=== PATIENT | male | born 1995 | race African-American/Black ===

== ENCOUNTER 2024-02-08 03:26 | Emergency (ER) | payer SELFPAY ==
[~2024-02-08] VITALS: Ht 190.5 cm; Wt 63.5 kg
[2024-02-08 04:06] VITALS: BP 173/88; TEMP 98.8; O2SAT 98
[2024-02-08 04:26] LABS: BASOPHILS % (AUTO) 0.4 % (0.0-2.0); EOSINOPHILS # (AUTO) 0.1 K/uL (0.0-0.7); EOSINOPHILS % (AUTO) 1.4 % (0.0-6.0); HEMATOCRIT 37 % (39-51); HEMOGLOBIN 12.2 g/dL (13.5-17.5); LYMPHOCYTES # (AUTO) 2.4 K/uL (0.8-4.8); LYMPHOCYTES % (AUTO) 29.9 % (20.0-44.0); MEAN CORPUSCULAR HEMOGLOBIN 30 PG (26.0-33.0); MEAN CORPUSCULAR HGB CONC 33 g/dl (31.0-36.0); MEAN CORPUSCULAR VOLUME 90 fL (80-96); MONOCYTES # (AUTO) 0.7 K/uL (0.1-1.30); MONOCYTES % (AUTO) 8.3 % (2.0-12.0); NEUTROPHILS # (AUTO) 4.9 K/uL (1.8-8.9); PLATELET COUNT (AUTO) 210 K/uL (150-450); RED BLOOD CELL COUNT(AUTO) 4.13 MIL/uL (4.5-6.0); WHITE BLOOD COUNT (AUTO) 8.2 K/uL (4.3-11.0)
[2024-02-08 04:30] LABS: APPEARANCE,URINE CLOUDY (CLEAR); BILIRUBIN,URINE NEGATIVE (NEGATIVE); BLOOD, URINE 3+ Ery/uL (NEGATIVE); COLOR,URINE DARK YELLOW (YELLOW); KETONES,URINE TRACE mg/dL (NEGATIVE); LEUKOCYTE ESTERASE ,URINE NEGATIVE (NEGATIVE); NITRITE, URINE NEGATIVE (NEGATIVE); PROTEIN,URINE TRACE mg/dl (NEGATIVE); UGLUCOSE NEGATIVE (NEGATIVE)
[2024-02-08 04:31] LABS: ADD URINE CULTURE YES; BACTERIA,URINE Rare /HPF (None Seen); RBC,URINE 21-50 /HPF (0-2); SQUAMOUS EPITHELIAL CELL,UR Few /HPF (None Seen)
[2024-02-08 04:46] LABS: ALBUMIN 3.6 g/dL (3.4-5.0); BILIRUBIN,TOTAL 0.7 mg/dL (0.2-1.0); POTASSIUM 3.7 mmol/L (3.5-5.1); TOTAL PROTEIN, SERUM 7.5 g/dL (6.4-8.2)
[2024-02-08] MEDS ORDERED: TAMS-12 PO (05:45)
[2024-02-08] MEDS ORDERED: KETO10TA2 PO (05:45)
[2024-02-08] MEDS: MORPHINE SULFATE INJ 2 MG/ML DISP.SYRIN IV ONE (06:02)
[2024-02-08] MEDS: ONDANSETRON HCL/PF - ER 4 MG/2 ML VIAL IV ONE (06:02)
[2024-02-08 06:23] LABS: AMPHETAMINE, URINE NEGATIVE (NEGATIVE); BARBITURATE, URINE NEGATIVE (NEGATIVE); BENZODIAZEPINE, URINE NEGATIVE (NEGATIVE); CANNABINOID, URINE POSITIVE (NEGATIVE); COCCAINE, URINE NEGATIVE (NEGATIVE); OPIATE, URINE NEGATIVE (NEGATIVE); PHENCYCLIDINE SCREEN,URINE NEGATIVE (NEGATIVE)
== END 2024-02-08 06:03 | disposition home or self-care (01) ==
LOC: ER 03:29
DX: N23 Unspecified renal colic (principal); Z88.8 Allergy status to other drugs, medicaments and biological substances
CPT/HCPCS: 99285; 74176; 96374; 85025; 87086; 83690; 36415; 80053; 80307; 81001; J2405

== ENCOUNTER 2024-11-12 14:09 | Emergency (ER) | payer MEDICAID, OTHER ==
[~2024-11-12] VITALS: Ht 190.5 cm; Wt 62.6 kg
[~2024-11-12 14:09] MED LIST: KETO10TA2 PO; TAMS-12 PO
[2024-11-12 14:23] VITALS: TEMP 99
[2024-11-12] MEDS ORDERED: IBUP-1490 PO (14:40)
[2024-11-12] MEDS ORDERED: ACET-2605 PO (14:40)
[2024-11-12] MEDS ORDERED: DOXY100T2 PO (14:40)
[2024-11-12] MEDS ORDERED: ACETAMINOPHEN ES 500 MG TABLET ONE (14:52)
[2024-11-12] MEDS ORDERED: NAPROXEN 250 MG TABLET ONE (14:52)
[2024-11-12] MEDS ORDERED: CEFTRIAXONE 500 MG VIAL ONE (14:53)
[2024-11-12] MEDS ORDERED: LIDOCAINE /MPF 1% VIAL 5 ML VIAL ONE (14:53)
[2024-11-12] MEDS: NAPROXEN 250 MG TABLET PO ONE (14:57)
[2024-11-12] MEDS: ACETAMINOPHEN ES 500 MG TABLET PO ONE (14:57)
[2024-11-12 15:05] LABS: BASOPHILS % (AUTO) 0.8 % (0.0-2.0); EOSINOPHILS % (AUTO) 0.1 % (0.0-6.0); HEMATOCRIT 40 % (39-51); LYMPHOCYTES # (AUTO) 1.3 K/uL (0.8-4.8); LYMPHOCYTES % (AUTO) 59.5 % (20.0-44.0); MEAN CORPUSCULAR HEMOGLOBIN 29 PG (26.0-33.0); MEAN CORPUSCULAR HGB CONC 33 g/dl (31.0-36.0); MEAN CORPUSCULAR VOLUME 89 fL (80-96); MONOCYTES # (AUTO) 0.3 K/uL (0.1-1.30); MONOCYTES % (AUTO) 13.8 % (2.0-12.0); NEUTROPHILS # (AUTO) 0.6 K/uL (1.8-8.9); NEUTROPHILS % (AUTO) 25.8 % (43.0-81.0); PLATELET COUNT (AUTO) 134 K/uL (150-450); RED BLOOD CELL COUNT(AUTO) 4.47 MIL/uL (4.5-6.0); RED CELL DISTRIBUTION WIDTH 13.5 % (11.5-15.0); WHITE BLOOD COUNT (AUTO) 2.2 K/uL (4.3-11.0)
[2024-11-12] MEDS: CEFTRIAXONE 500 MG VIAL IM ONE (15:07)
[2024-11-12 15:21] LABS: CALCIUM, SERUM 8.4 mg/dL (8.5-10.1); CREATININE 1.1 mg/dL (0.6-1.3); POTASSIUM 3.8 mmol/L (3.5-5.1)
[2024-11-12 15:26] LABS: APPEARANCE,URINE CLEAR (CLEAR); BILIRUBIN,URINE Negative (NEGATIVE); BLOOD, URINE Trace-intact Ery/uL (NEGATIVE); COLOR,URINE YELLOW (YELLOW); KETONES,URINE Trace mg/dL (NEGATIVE); LEUKOCYTE ESTERASE ,URINE Negative (NEGATIVE); PROTEIN,URINE 100 mg/dl (NEGATIVE); UGLUCOSE Negative (NEGATIVE)
[2024-11-12 15:27] LABS: ADD URINE CULTURE NO; BACTERIA,URINE Few /HPF (None Seen); NITRITE, URINE NEGATIVE (NEGATIVE); SQUAMOUS EPITHELIAL CELL,UR Rare /HPF (None Seen)
[2024-11-12 16:39] VITALS: BP 105/65; O2SAT 97
[2024-11-13 11:07] LABS: RAPID PLASMA REAGIN QUAL. Reactive (Non Reactive)
[2024-11-14 01:07] LABS: HIV-1 p24 ANTIGEN NON REACTIVE (NONREACTIVE); HIV-1/2 ANTIBODY NON REACTIVE (NONREACTIVE)
== END 2024-11-12 16:34 | disposition home or self-care (01) ==
LOC: ER 14:16
DX: R36.9 Urethral discharge, unspecified (principal); B97.89 Other viral agents as the cause of diseases classified elsewhere; R11.0 Nausea; Z87.442 Personal history of urinary calculi; Z79.899 Other long term (current) drug therapy
CPT/HCPCS: 99283; 86593; 86592; 96372; 85025; 80048; 81001; 87806; 87491; 87591; J0696; J3490; 36415